=== PATIENT | female | born 1990 | race African-American/Black ===

== ENCOUNTER 2022-12-05 14:05 | Outpatient (CLI) | payer BC, SELFPAY ==
[2022-12-05 14:56] LABS: Influenza A QL RT-PCR Negative (Negative); Influenza B QL RT-PCR Negative (Negative); RSV RNA, RT-PCR Negative (Negative); SARS-CoV-2 RNA PCR Negative
== END 2022-12-05 14:06 | disposition home or self-care (01) ==
LOC: ANHLAB 14:06
PROVIDERS: PCP Family Medicine; Visit Provider Nurse Practitioner Family
DX: R68.89 Other general symptoms and signs (principal); Z20.822 Contact with and (suspected) exposure to COVID-19
CPT/HCPCS: 87637

== ENCOUNTER 2024-10-21 06:37 | Outpatient (CLI) | payer OTHER, SELFPAY ==
--- NOTE | 2024-10-22 11:46 | WPDNEUROLOGY ---
Neurology EEG Report General Information Date of Study: 10/21/24 TEST Eeg DIAGNOSIS epilepsy CONDITION OF RECORDING awake drowsy and sleep. EEG NUMBER [id number] CLINICAL HISTORY Patient reports she has started having shaking spells, shortness of breath and losing consciousness. EEG DESCRIPTION Basic resting occipital frequency consists of low to medium voltage 9 to 11 hertz per 2nd alpha admixed with low-voltage 15 to 18 hertz per 2nd beta activity. Good donovan posterior gradient noted. Photic stimulation produced normal drive. and hyperventilation produced normal and symmetrical buildup. During drowsiness low voltage beta activity seen admixed with waxing and waning alpha activity. Evolving into mixture of the beta alpha and theta activity. Single episode of sharp dysrhythmic discharge seen only for 1-1/2 seconds. Nonfocal. Nonlateralizing. IMPRESSION Abnormal record due to the presence of single epic of dysrhythmic sharp and slow wave discharge lasting for 1-1/2nd. This abnormality could be suggestive of underlying seizure disorder. Clinical correlation recommended.
== END 2024-10-21 06:38 | disposition home or self-care (01) ==
LOC: ANHNEURO 06:39
PROVIDERS: PCP Family Medicine; Visit Provider Psychiatry & Neurology Neurology
DX: G40.909 Epilepsy, unspecified, not intractable, without status epilepticus (principal); Z87.828 Personal history of other (healed) physical injury and trauma; R25.8 Other abnormal involuntary movements
CPT/HCPCS: 95816

== ENCOUNTER 2025-01-13 22:49 | Emergency (ER) | payer OTHER, SELFPAY ==
[2025-01-13 22:49] VITALS: BP 116/90; PULSE 100; RESP 14; TEMP 36.7; O2SAT 100
[2025-01-13 23:06] LABS: Basophils Percent Auto 0.8 % (0.2-1.2); Hematocrit 36.5 % (37.0-47.0); Hemoglobin 12.1 g/dL (12.0-15.0); Lymphocytes Absolute Auto 1.59 K/mm3 (0.9-3.2); Lymphocytes Percent Auto 32.1 % (18.3-44.2); Mean Corpuscular HGB Conc 33.2 g/dl (32-36); Mean Corpuscular Hemoglobin 26.4 pg (26-34); Mean Corpuscular Volume 79.5 fl (80-100); Mean Platelet Volume 12.3 fl (7.4-10.4); Monocytes Absolute Auto 0.3 K/mm3 (0.1-0.6); Monocytes Percent Auto 6.7 % (2.6-8.5); Neutrophils Percent Auto 60.4 % (45.5-73.1); Platelet Count Result 317 k/mm3 (150-375); Red Blood Count 4.59 M/mm3 (4.2-5.4); Red Cell Distribution Width 14.4 % (11.5-14.5)
[2025-01-13] MEDS: SODIUM CHLORIDE 0.9% IV 1,000 ML 999 ML IV CONT (23:11)
[2025-01-13 23:21] LABS: Alanine Aminotransferase 19 U/L (6-35); Albumin Level 3.5 g/dL (3.5-5.1); Alkaline Phosphatase 57 U/L (38-126); Anion Gap 15 mmol/L (4-12); Aspartate Amino Transferase 20 U/L (14-36); Bilirubin,Total 0.6 mg/dL (0.2-1.3); Blood Urea Nitrogen 11 mg/dL (7-17); Calcium 7.9 mg/dL (8.4-10.2); Carbon Dioxide 12 mmol/L (22-30); Chloride 110 mmol/L (98-107); Estimated CRCL calculation 92 ml/min; Estimated Glomerular Filt Rate > 60; Glucose 73 mg/dL (65-110); Potassium 2.8 mmol/L (3.4-5.0); Sodium 137 mmol/L (137-145)
--- NOTE | 2025-01-13 23:44 | ED.SEIZURE ---
HPI - Seizure General Chief Complaint: Seizure Stated Complaint: seizure Time Seen by Provider: 01/13/25 23:00 History of Present Illness HPI Narrative: 35-year-old female with psychogenic nonepileptic seizures, hypertension. Patient presents to the emergency department for evaluation of ?17 seizures today ?patient recently got told that her was cheating on her today and that was what precipitated her shaking and convulsion type episodes. She presents with her sister at bedside who states that she was having shaking convulsions throughout the day about once an hour. Denies any headache, vision changes or trauma. She is seeing a neurologist at the [facility] system and I have their previous notes that recommended psychiatric follow-up and suspicion for nonepileptic seizures and negative EEG report. Patient is on topiramate 25 mg b.i.d. for mood stabilization/seizure prophylaxis. Patient herself presents via EMS and was appearing to have convulsions however these stopped when she brought back to the room and did not have any postictal phase. She is presently awake alert oriented answering all my questions appropriately, not any acute distress. She informs me that her seizures are triggered by stress and the news that her was unfaithful is likely what happened to treat her episodes today. She seems to be very cognizant of her psychogenic seizure disorder. Denies any other recent illnesses or injuries. No chest pain, shortness a breath, abdominal pain, back pain, fever, chills. Denies any chance of . Denies any ingestion or alcohol use. Related Data Allergies Allergy/AdvReac Type Severity Reaction Status Date / Time No Known Allergies Allergy Verified 09/01/24 15:14 Review of Systems Review of Systems: As [facility] Past Medical History Medical History Seizure disorder Environmental allergies Essential (primary) hypertension Type 2 diabetes mellitus without complications Vitamin D3 deficiency Anxiety BMI 50.0-59.9, adult GERD without esophagitis Family History Family History Father Diabetes mellitus Cardiac arrest Mother Breast cancer Hypertension Sibling Breast cancer Social History Social History Smoking status: Never smoker Alcohol intake: never Substance use: never Substance use type: does not use Do You Feel Safe in your Home?: Yes Lack of Transportation: No Lack of Food: Never True Current Housing: I Have Housing Concerned About Future Housing: No Difficulty Paying Gas/Electric Bills: No Difficulty Paying for Meds: No Currently Unemployed: No Education: High School Diploma/GED Difficulty w/ Childcare or Family Care: No Living arrangements: with family Additional living arrangements comments: Occupation/Education: occupation Gender identity (if verbalized by the patient): Female Sexual Orientation (if Verbalized by the Patient): Straight or Heterosexual Spiritual care concerns: No Exam Narrative: GENERAL: [Well-appearing, well-nourished, and in no acute distress.] HEAD: [Normocephalic, atraumatic.] EYES: [PERRLA and EOMI.] ENT: Nares clear, no rhinorrhea or epistaxis. Mucous membranes moist. NECK: Supple. CHEST: [Clear to auscultation. No respiratory distress.] HEART: [Regular rate and rhythm]. No murmur heard. [Normal peripheral pulses.] ABDOMEN: [Soft, nondistended], [nontender], [No rigidity or guarding] EXTREMITIES: Normal range of motion. [No edema.] SKIN: Warm, dry, no rash. NEURO: [No focal deficits]. Alert and oriented [x3.] PSYCH: [Normal mood and affect.] Course Vital Signs Vital signs: Vital Signs Temperature 36.7 C 01/13/25 22:49 Pulse Rate 100 01/13/25 22:49 Respiratory Rate 14 01/13/25 22:49 Blood Pressure 116/90 01/13/25 22:49 Pulse Oximetry 100 01/13/25 22:49 Oxygen Delivery Room Air 01/13/25 22:49 Temperature 36.7 C 01/13/25 22:49 Pulse Rate 88 01/14/25 02:24 Respiratory Rate 14 01/14/25 02:22 Blood Pressure 101/65 01/14/25 02:22 Pulse Oximetry 100 01/14/25 02:22 Oxygen Delivery Room Air 01/14/25 01:02 MDM - Seizure MDM Narrative Medical decision making narrative: 35-year-old female with history of psychogenic nonepileptic seizures presenting to the ER for evaluation of convulsion type episodes throughout the day triggered by stressful news that her was cheating on her. Patient has had neurology outpatient evaluation at [facility] earlier this month with suspicion for psychogenic nonepileptic seizures, negative EEG study, recommendations for outpatient psychiatric follow-up but she is taking topiramate for mood stabilization/seizures. Patient was having convulsions this afternoon and even called her neurologist who stated that she should take 2 of her topiramate and have outpatient evaluation. Patient presents via EMS and appears to be convulsing although does not appear to be a classical seizure-like activity. Stops when she is transferred to the stretcher here and does not have a postictal phase and she is able to answer questions immediately and act appropriately. She has normal vital signs, no tachycardia, fever, hypoxia. She has an unremarkable neurological assessment. No postictal phase. Suspicion for true epilepsy or seizures very unlikely in this clinical scenario. We will evaluate basic laboratory studies, CBC, CMP, lactic acid and a CT head given her historical features. She is given a normal saline bolus and placed on telemetry monitoring and observe frequently. Patient seems cognizant of her psychogenic nonepileptic seizure activity and states that stressful situations and psychiatric triggers to trigger her seizures. Workup shows no leukocytosis or anemia. Normal platelet count. Electrolytes show some mild hypokalemia at 2.8, low carbon dioxide secondary to hyperventilation. No signs of significant elevated anion gap. Negative lactic acid, making seizure activity very unlikely especially when correlated to her clinical exam at this time. Normal glucose, normal LFTs, normal renal function panel. Head CT shows no acute intracranial findings. EKG shows sinus rhythm. No signs of acute ischemia. Repeat electrolyte panel after potassium replacement was part way through shows improvement in all her labs. Potassium 3.2 with still several hours of infusion remaining, normalization of her carbon dioxide and anion gap consistent with her no longer hyperventilating. She has been hemodynamically stable here on cardiac/vascular sonographer throughout the entire ED visit and maintained no further seizure-like activity during her ED stay in observation. At this time she is clinically safe for discharge home with regular by Neurology and Psychiatry follow-up for her psychogenic nonepileptic seizures. Medical Records Attestation: I reviewed the patient's medical records. Lab Data Attestation: I reviewed the patient's lab results. 01/13/25 23:01 01/14/25 04:02 Labs: Lab Results 01/13/25 01/14/25 01/14/25 Range/Units 23:01 00:31 04:02 WBC 5.0 (4.5-10.0) K/mm3 RBC 4.59 (4.2-5.4) M/mm3 Hgb 12.1 (12.0-15.0) g/dL Hct 36.5 L (37.0-47.0) % MCV 79.5 L (80-100) fl MCH 26.4 (26-34) pg MCHC 33.2 (32-36) g/dl RDW 14.4 (11.5-14.5) % Plt Count 317 (150-375) k/mm3 MPV 12.3 H (7.4-10.4) fl Immature Gran % (Auto) 0.0 (0-0.5) % Neut % (Auto) 60.4 (45.5-73.1) % Lymph % (Auto) 32.1 (18.3-44.2) % [place] % (Auto) 6.7 (2.6-8.5) % Eos % (Auto) 0.0 (0-4.4) % Baso % (Auto) 0.8 (0.2-1.2) % Lymph # (Auto) 1.59 (0.9-3.2) K/mm3 [place] # (Auto) 0.3 (0.1-0.6) K/mm3 Eos # (Auto) 0.0 (0-0.3) K/mm3 Baso # (Auto) 0.0 (0.0-0.1) K/mm3 Abs Immat Gran (auto) 0.00 (0.00-0.031) K/mm3 Absolute Neuts (auto) 3.0 (1.3-6.7) K/mm3 Absolute Nucleated RBC 0.000 (0.0-0.012) K/mm3 Nucleated RBC % 0.0 (0.0-0.2) % Sodium 137 138 (137-145) mmol/L Potassium 2.8 L* 3.2 L (3.4-5.0) mmol/L Chloride 110 H 108 H (98-107) mmol/L Carbon Dioxide 12 L 17 L (22-30) mmol/L Anion Gap 15 H 13 H (4-12) mmol/L BUN 11 11 (7-17) mg/dL Creatinine 0.86 0.99 (0.7-1.0) mg/dL Estim Creat Clear Calc 92 81 ml/min Estimated GFR > 60 > 60 (59 - ) Glucose 73 81 (65-110) mg/dL Lactic Acid 1.4 (0.7-2.0) mmol/L Calcium 7.9 L 8.5 (8.4-10.2) mg/dL Total Bilirubin 0.6 (0.2-1.3) mg/dL AST 20 (14-36) U/L ALT 19 (6-35) U/L Alkaline Phosphatase 57 (38-126) U/L Total Protein 7.0 (6.3-8.2) g/dL Albumin 3.5 (3.5-5.1) g/dL Imaging Data Attestation: I personally reviewed and interpreted this imaging study as follows: My impression: Impressions Head CT 01/13/25 23:36 IMPRESSION: No acute intracranial findings. Discharge Plan Discharge Clinical Impression: Psychogenic nonepileptic seizure, Acute hypokalemia Patient Disposition: Home, Self-Care Condition: Stable Instructions: Antibiotic Form, Hypokalemia (ED), Nonepileptic Seizures (DC) Additional Instructions: Your workup here was very reassuring, the only finding we had was a slightly low potassium which we corrected with supplementation here. This was likely secondary to hyperventilation during your convulsion episodes and likely not a true deficiency. Your CT scan shows no findings. Your repeat labs are improved and stable. Your symptoms are very consistent with psychogenic nonepileptic seizures which your neurologist notes and your doctor also concur with. No true epileptic type seizure activity based on your labs and imaging and your symptoms are secondary to a stress response causing nonepileptic seizure. Call your neurologist for close follow-up and recommendations regarding your medications. No indications for hospitalization. Return with any new concerns. Patient Language: Kinyarwanda Prescriptions: No Action hydroxyzine HCl 25 mg tablet 25 mg PO TID PRN (Reason: anxiety) Qty: 30 0RF buspirone 5 mg tablet 5 mg PO TID Qty: 90 1RF fluoxetine 40 mg capsule 40 mg PO DAILY Qty: 90 1RF losartan-hydrochlorothiazide 50-12.5 mg tablet 1 tablet PO DAILY Qty: 90 1RF Mounjaro 10 mg/0.5 mL pen injector 10 mg subcut WEEKLY Qty: 6 1RF Follow-up/Referrals: Patel De Luna MD [Primary Care Provider] - Stand Alone Forms: Work/School Release IP Time of Disposition: 05:06
[2025-01-14 00:46] LABS: Lactic Acid Reflex 1.4 mmol/L (0.7-2.0)
[2025-01-14 01:01] VITALS: BP 111/59; PULSE 83; RESP 14; O2SAT 100
[2025-01-14 01:02] VITALS: O2SAT 100
[2025-01-14] MEDS: POTASSIUM CHLORIDE 20 MEQ PACKET (FOR LIQUID) 40 MEQ PO (02:05)
[2025-01-14] MEDS: SODIUM CHLORIDE 0.9% IV 1,000 ML 999 ML IV CONT (02:07)
[2025-01-14] MEDS: POTASSIUM CHLORIDE INJ 40 MEQ in SODIUM CHLORIDE 0.9% IV 500 ML 130 MEQ IVPB (02:20)
[2025-01-14 02:22] VITALS: BP 101/65; PULSE 85; RESP 14; O2SAT 100
[2025-01-14 02:24] VITALS: PULSE 88
[2025-01-14 04:17] LABS: Anion Gap 13 mmol/L (4-12); Blood Urea Nitrogen 11 mg/dL (7-17); Calcium 8.5 mg/dL (8.4-10.2); Carbon Dioxide 17 mmol/L (22-30); Chloride 108 mmol/L (98-107); Estimated CRCL calculation 81 ml/min; Estimated Glomerular Filt Rate > 60; Glucose 81 mg/dL (65-110); Potassium 3.2 mmol/L (3.4-5.0); Sodium 138 mmol/L (137-145)
== END 2025-01-14 05:25 | disposition home or self-care (01) ==
PROVIDERS: Emergency Provider Student in an Organized Health Care Education/Training Program; PCP Family Medicine
DX: F44.5 Conversion disorder with seizures or convulsions (principal); E87.6 Hypokalemia; I10 Essential (primary) hypertension; E11.9 Type 2 diabetes mellitus without complications; E55.9 Vitamin D deficiency, unspecified; K21.9 Gastro-esophageal reflux disease without esophagitis; Z79.85 Long-term (current) use of injectable non-insulin antidiabetic drugs; Z79.899 Other long term (current) drug therapy
CPT/HCPCS: 36415; 70450; 80048; 80053; 83605; 85025; 93005; 96361; 96365; 96366; 99284; A9270; J3480; J7030; J7040

== ENCOUNTER 2025-09-17 08:03 | Emergency (ER) | payer OTHER, SELFPAY ==
--- OUTSIDE RECORDS SUMMARY | 2025-08-28 09:30 | XMS_ITS ---
Author Organization [facility] As [employer] Address [facility] [facility] [address] [place] [address] Care Team Providers Care Proposal Development Manager Name Role Phone Joann De Luna MD Primary Care Provider Unavailable Yanni Champagne Unavailable [phone] REASON FOR VISIT 1 month f/u Social History Sex Assigned At : Social History Observation Description Sex Assigned At Female Encounters Encounter Location Date Provider Diagnosis [facility] [address] [facility] [address] [facility] [address] [place] [address] 08/28/2025 Yanni Champagne Plan Of Treatment No Information Progress Notes * Gini QUIROGA LDOB:1989 (35 yo F)Acc No.[id number]:08/28/2025 Patient: Queta Roldanney Branden Provider: ERIN DE LA TORRE :1990 A ge:35 Y S ex:Female Date:08/28/2025 [address] [id number] Pcp:Joann Cuellar Subjective: * Chief Complaints: * 1 month f/u Billing Information: * Procedure Codes: * Electronic signature of ERIN Lau on 09/17/2025 at 08:06 AM COMBINATION MAN Sign off status: Pending * Provider: ERIN DE LA TORRE Date: Generated for Miryam hernandez/Gi/Tone on: 1 11/17/2024 08:06 AM COMBINATION MAN
--- NOTE | ~2025-09-17 | XR_ITS ---
EXAMINATION: XR knee LT 3V, 09/17/2025 14:05 [employer]IAL SCIENCE TEACHER HISTORY: pain in LT knee, no known injury COMPARISON: No comparisons available. Findings: No acute fracture or malalignment. No significant degenerative changes. Soft tissues unremarkable. Impression: No acute fracture or malalignment. Reviewed, dictated and finalized at location P. ARIAL SCIENCE TEACHER Impression: No acute fracture or malalignment.
--- NOTE | ~2025-09-17 | US_ITS ---
LEFT LOWER EXTREMITY VENOUS DUPLEX Clinical History: pain COMPARISON: None TECHNIQUE: Grayscale, color, duplex/spectral Doppler sonography left leg FINDINGS: Left leg common femoral, femoral, popliteal, and calf veins compressible and color Doppler patent. Normal augmentation with distal compression. No internal echoes. IMPRESSION: 1. No left leg DVT. Reviewed, dictated and finalized at location R. DESIGNER IMPRESSION: 1. No left leg DVT.
--- OUTSIDE RECORDS SUMMARY | 2025-09-17 08:06 | XMS_ITS | Clinical Summary ---
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
--- OUTSIDE RECORDS SUMMARY | 2025-09-17 08:06 | XMS_ITS | Clinical Summary ---
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 Gender Identity Not on file Sexual Orientation Not on file Plan of Treatment Health Maintenance Due Date Last Done Comments Hepatitis C Virus (HCV) Screening 1990 TdaP Immunization 1988 Hepatitis B Immunization (1 of 3 - 19+ 3-dose series) 2007 Pap Smear 2009 Human Papillomavirus (HPV) Immunization (1 - 3-dose SCDM series) 2015 Cervical Cancer Screening (CCS) 2018 HPV/Cotest 2018 Influenza Immunization (#1) 2025 SARS-COV-2 Immunization ( season) 2025 02/04/2021, 01/02/2021 Respiratory Syncytial Virus (RSV) Immunization (Adult) (1 - 1-dose 75+ series) 2063 Meningococcal Immunization (ACWY) Aged Out No longer eligible b ased on patient's age to complete this topic Pneumococcal Immunization Combined Aged Out No longer eligible b ased on patient's age to complete this topic Rotavirus Immunization Aged Out No lo nger eligible based on patient's age to complete this topic
--- OUTSIDE RECORDS SUMMARY | 2025-09-17 08:06 | XMS_ITS | Encounter Summary ---
Author Organization [facility] Address [address] [place] [address] Care Team Providers Care Color Tester Name Role Phone No, Physician Unavailable Joann De Luna MD Primary Care Provider Taisha De La Fuente PT Unavailable Unavailabl e Taisha De La Fuente PT Unavailable Unavailabl e Encounter Details Date Type Department Care Team (Late st Contact Info) Description 07/06/2025 Telephone [facility] Bed Planning [address] [place] [address] Kristen Maldonado RN Social History Tobacco Use Types Packs/Day Years Used Date Smoking Tobacco: Never Smokeless Tobacco: Never Alcohol Use Standard Drinks/Week Comments No 0 (1 standard drink = 0.6 oz pur e alcohol) AUDIT-C Answer Date Recorded Q1: How often do you have a drink containing alc ohol? Never 08/17/2020 Average Number of Drinks Not on file 020 Frequency of Binge Drinking Not on file 12/2019 Personal Safety Answer Date Recorded Have you ever been in or are you currently in a harmful physical or emotional relationship or is someone making you feel afraid or unsafe? Denies 07/22/2024 Comments No Sex and Gender Information Value Date Recorded Sex Assigned at Not on file Legal Sex Female 5:02 AM LEAD ARCHITECT Gender Identity Female 03/18/2023 3:29 PM CDT Sexual Orientation Straight 03/18/2023 3: 29 PM CDT documented as of this encounter Plan of Treatment Not on file documented as of this encounter Visit Diagnoses Not on filedocumented in this encounter Care Teams Color Tester Relationship Specialty Start Date End Date Joann De Luna MD PCP - General Family Practice 03/16/23 No, Physician 08/17/20 Taisha De La Fuente, PT Physical Therapist Physical Therapy 03/26/23 Taisha De La Fuente, PT Physical Therapist Physical Therapy 03/26/23 documented as of this encounter
--- OUTSIDE RECORDS SUMMARY | 2025-09-17 08:06 | XMS_ITS | Clinical Summary ---
Author Organization [facility] Address [address] [address] Care Team Providers Care Boat Rigger Name Role Phone Unavailable Primary Care Provider Unavailabl e Source Comments [facility],non-owned Affiliates and Associated Physician Practices is amultiple site organization consisting of ambulatory clinics and hospital sitesin [place], [place], [place] and [place]. This disclosure is being madepursuant to the Care Everywhere program and may not contain all information available regarding this patient. Last updated 18.[facility] Social History Tobacco Use Types Packs/Day Years Used Date Smoking Tobacco: Never Assessed Comments Unknown Sex and Gender Information Value Date Recorded Sex Assigned at Not on file Legal Sex Female 2:29 PM CDT Gender Identity Not on file Sexual Orientation Not on file Plan of Treatment Health Maintenance Due Date Last Done Comments HIV SCREENING 2003 HEPATITIS C SCREENING 12/27/2005 DTAP/TDAP/TD VACCINES (1 - Tdap) 2007 HEPATITIS B VACCINE (1 of 3 - 19+ 3-dose series) 2007 PAP SMEAR 2009 HPV VACCINE (1 - 3-dose SCDM series) 2015 DEPRESSION SCREENING 11/16/2024 COVID-19 VACCINE ( - 2023-2 5 season) 2025 INFLUENZA VACCINE (#1) 2025 ZOSTER VACCINE (1 of 2) 2038 HIB VACCINE Aged Out No longer eligi ble based on patient's age to complete this topic MENINGOCOCCAL (Group B) VACC INE SHARED DECISION-MAKING Aged Out No longer eligibl e based on patient's age to complete this topic MENINGOCOCCAL GROUPS A/C/Y/W VACCINE Aged Out No longer eligible b ased on patient's age to complete this topic PNEUMOCOCCAL VACCINE Aged Out No long er eligible based on patient's age to complete this topic
--- OUTSIDE RECORDS SUMMARY | 2025-09-17 08:06 | XMS_ITS | Clinical Summary ---
Author Organization [facility] Address [address] [place] [address] Care Team Providers Care Bilingual Office Assistant Name Role Phone No, Physician Unavailable Joann De Luna MD Primary Care Provider Taisha De La Fuente PT Unavailable Unavailabl e Taisha De La Fuente PT Unavailable Unavailabl e Allergies No known active allergies Medications busPIRone (BUSPAR) 5 mg tablet Take 1 tablet (5 mg total) by mouth 3 (three) times a day 06/30/20 24 Active FLUoxetine (PROzac) 20 mg capsule Take 1 capsule (20 mg total) by mouth daily 06/09/20 24 Active hydrOXYzine (ATARAX) 25 mg tablet Take 1 tablet (25 mg total) by mouth 3 (three) times a day as needed Active losartan-hydroCHLO ROthiazide (HYZAAR) 50-12.5 mg per tablet Take 1 tablet by mouth daily Active Mounjaro 7.5 mg/0.5 mL pen injector Inject 0.5 mL (7.5 mg total) under the skin once a week Active topiramate (TOPAMAX) 50 mg tablet TAKE 1/2 TABLET BY MOUTH TWICE DAILY FOR 2 WEEKS THEN TAKE 1 TABLET BY MOUTH TWICE DAILY 122 tablet 12/21/19 25 Active Additional Information Patient not taking.Reported on 08/15/2025 rizatriptan [employer] (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 Do not exceed 30 mg in 24 hours. 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 He/she should avoid any dangerous environment in which he/she may get serious injury to himself/herself or others in case of seizure. - Recommend psychiatry. Patient aware most likely stress related and non epileptic - If continued episodes despite AED, may consider referral to Dr. 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): - Start topiramate 25mg BID x 2 weeks, then 50mg BID Right leg pain 03/17/2023 Pneumonia due to COVID-19 virus 08/17/2020 Encounters Date Type Department Care Team Description 08/15/2025 4:30 PM CDT Office Visit [facility] at [address] [phone] Darlene Ryan NP Irritation of right eye (Primary Dx) 07/10/2025 8:20 AM CDT Lab [address] [place] [address] Avitaminosis D (Primary Dx); Dizziness and giddiness; Fatigue; Diabetes mellitus (HCC); Essential hypertension, malignant 07/08/2025 Telephone [facility] Bed Planning [address] [place] [address] Duc Ricketts, DEMOND 07/06/2025 Telephone [facility] Bed Planning [address] [place] [address] Kristen Maldonado, DEMOND 07/03/2025 Telephone [facility] [address] [place] [phone] Tiffanie Ureña 06/30/2025 Telephone [facility] [address] [place] [phone] Tiffanie Ureña 06/28/2025 Telephone [facility] [address] [place] [phone] Latisha Mendez 06/28/2025 Telephone [facility] [address] [place] [phone] Latisha Mendez 06/26/2025 Telephone [facility] [address] [place] [phone] Tiffanie Ureña 06/18/2025 7:30 PM CDT Office Visit [facility] at [address] [phone] Romy Rios NP Dizziness (Primary Dx); Vision changes; History of seizures; Weakness from Last 3 Months Immunizations Immunization Administration Dates Next Due Influenza, Quadrivalent, Spl it, Preservative Free, Intramuscular 08/18/2020(Deferred: Patient Refused) Medical History Medical History Date Comments Hypertension Diabetes mellitus Family History Medical History Relation Name Comments Diabetes Father Diabetes Maternal Grandfather Hypertension Maternal Grandmother Breast cancer Mother Hypertension Mother Breast cancer Sister Ovarian cancer Neg Hx Thyroid cancer Neg Hx Relation Name Status Comments Father Maternal Grandfather Maternal Grandmother Mother Sister Social History Tobacco Use Types Packs/Day Years Used Date Smoking Tobacco: Never Smokeless Tobacco: Never Tobacco Cessation:Counseling Given: Not Answered Alcohol Use Standard Drinks/Week Comments No 0 (1 standard drink = 0.6 oz pur e alcohol) AUDIT-C Answer Date Recorded Q1: How often do you have a drink containing alc ohol? Never 08/17/2020 Average Number of Drinks Not on file Frequency of Binge Drinking Not on file 12/2019 Personal Safety Answer Date Recorded Have you ever been in or are you currently in a harmful physical or emotional relationship or is someone making you feel afraid or unsafe? 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 Gender Identity Female 03/18/2023 3:29 PM CDT Sexual Orientation Straight 03/18/2023 3: 29 PM CDT Obstetrics History Para Term AB IAB SAB Ectopic Multiple Livin g Live Births 0 0 0 0 0 0 0 0 0 0 0 Last Filed Vital Signs Vital Sign Reading Time Taken Comments Blood Pressure 115/78 08/15/2025 4:30 PM CDT Pulse 102 08/15/2025 4:30 PM CDT Temperature 37.1 C (98.7 F) 08/15/2025 4:30 PM CDT Respiratory Rate 18 08/15/2025 4:30 PM CDT Oxygen Saturation 99% 08/15/2025 4:30 PM CDT Inhaled Oxygen Concentration - - Weight 78.2 kg (172 lb 6.4 oz) 08/15/2025 4:30 P M CDT Height 167.6 cm (5' 5.98) 08/15/2025 4:30 PM CD T Body Mass Index 27.84 08/15/2025 4:30 PM CDT Plan of Treatment Health Maintenance Due Date Last Done Comments Depression Screening 1988 Hepatitis C Screening 1988 Dilated Eye Exam 1988 Foot Exam 1988 DTaP/Tdap/Td Vaccine (1 - Tdap) 1999 Varicella Vaccines (1 of 2 - 13+ 2-dose series) 2001 Hepatitis B Screening 2006 Pneumococcal vaccine <65 (1 of 2 - PCV) 2007 HPV Vaccines (1 - 3-dose SCD M series) 2015 Cervical Cancer Screening 12/28/2019 12/28/2018 Regular Well Visit/Exam 18-64 12/28/2019 12/28/2018 Covid-19 Vaccine (3 - 2024-2 6 season) 2025 02/04/2021, 01/02/2021 Influenza Vaccine (#1) 2025 , 08/25/2023, 08/15/2022 Hemoglobin A1C 01/10/2026 07/10/2025, 04/0 07/2025, 06/09/2024, Additional history exists Albumin Creatinine Ratio, Urine 02/22/2026 Breast Cancer Screening-Mammogram 03/16/2026 025, 02/23/2024 Lipid Panel 07/10/2026 07/10/2025, 05/17, 12/10/2023 eGFR 07/10/2026 07/10/2025, 04/0 07/2025, 07/19/2024, Additional history exists Procedures Procedure Name Priority Date/Time Associated Diagnosis Comments EGFR Routine 07/10/2025 8:38 AM CDT Avitaminosis D Dizziness and giddiness Fatigue Diabetes mellitus (HCC) Essential hypertension, malignant DIFFERENTIAL AUTO Routine 07/10/2025 8:3 8 AM CDT Avitaminosis D Dizziness and giddiness Fatigue Diabetes mellitus (HCC) Essential hypertension, malignant CBC WITH AUTO DIFFERENTIAL Routine 07/10/2025 8:38 AM CDT Avitaminosis D Dizziness and giddiness Fatigue Diabetes mellitus (HCC) Essential hypertension, malignant COMPREHENSIVE METABOLIC PANEL Routine 07/10/2025 8:38 AM CDT Avitaminosis D Dizziness and giddiness Fatigue Diabetes mellitus (HCC) Essential hypertension, malignant HEMOGLOBIN A1C Routine 07/10/2025 8:38 AM CDT Avitaminosis D Dizziness and giddiness Fatigue Diabetes mellitus (HCC) Essential hypertension, malignant LIPID PANEL Routine 07/10/2025 8:38 AM CDT Avitaminosis D Dizziness and giddiness Fatigue Diabetes mellitus (HCC) Essential hypertension, malignant MAGNESIUM Routine 07/10/2025 8:38 AM CDT Avitaminosis D Dizziness and giddiness Fatigue Diabetes mellitus (HCC) Essential hypertension, malignant THYROID FUNCTION CASCADE Routine 07/10/2025 8:38 AM CDT Avitaminosis D Dizziness and giddiness Fatigue Diabetes mellitus (HCC) Essential hypertension, malignant VITAMIN B12 Routine 07/10/2025 8:38 AM CDT Avitaminosis D Dizziness and giddiness Fatigue Diabetes mellitus (HCC) Essential hypertension, malignant VITAMIN D 25 HYDROXY Routine 07/10/2025 8:38 AM CDT Avitaminosis D Dizziness and giddiness Fatigue Diabetes mellitus (HCC) Essential hypertension, malignant POCT GLUCOSE Routine 06/18/2025 7:48 PM CDT Dizziness DIAGNOSTIC MAMMOGRAM BILATERAL W JOSE Schedule Routine, Read Routine (OP Routine) 03/16/2025 11:51 AM CDT Abnormal mammogram ALBUMIN CREATININE RATIO, URINE Routine 02/22/2025 7:39 AM CDT PAP IG, HPV-HR Routine 12/28/2018 Well woman exam from Last 3 Months or Most Recently Relevant to Health Maintenance Results * eGFR (07/10/2025 8:38 AM CDT) eGFR 81 >=60 mL/min/1. 73 m2 Comment: Interpretive Data Reference Interval Normal >/= 90 mL/min/1.73m2 Mildly decreased* 60 - 89 mL/min/1.73m2 Mildly to moderately decreased 45 - 59 mL/min/1.73m2 Moderately to severely decreased 30 - 44 mL/min/1.73m2 Severely decreased 15 - 29 mL/min/1.73m2 Kidney Failure < 15 mL/min/1.73m2 *Relative to young adult level Estimated glomerular filtration rate is determined by the 2020 CKD-EPI equation recommended by the National Kidney Foundation (A Unifying Approach to GFR Estimation: Recommendations of the NKF-ASK Task Force on Reassessing the Inclusion of Race in Diagnosing Kidney Disease, JASN 2020). The CKD-EPI equation should not be used for patients with unstable renal function and has not been validated in children and those over 70. Current interpretive data was last reviewed 2021. Blood 07/10/2025 8:38 AM CDT 07/10/2025 11:15 AM CDT Joann De Luna MD LAB BLOOD ORDERABLES F inal Result [place] [id number] [facility] Department [place] [address] * (ABNORMAL) Differential, auto (07/10/2025 8:38 AM CDT) Neutrophil abs 2.02 1.50 - 6.50 K/cumm Imm gran abs 0.01 0.00 - 0.10 K/cumm [facility] Lymphocyte abs 1.65 0.80 - 3.30 K/cumm [facility] Monocyte abs 0.16(L) 0.20 - 0.80 K/cumm [facility] Eosinophil abs 0.04 0.00 - 0.50 K/cumm [facility] Basophil abs 0.03 0.00 - 0.10 K/cumm [facility] Neutrophil pct 51.6 % [facility] Comment: Interpretive Data Percent cell count reference ranges are not reported, since discordance with absolute values may lead to misinterpretation of CBC data. Current Interpretive Data was last revised on 2018. Imm gran pct 0.3 % [facility] Comment: Interpretive Data Percent cell count reference ranges are not reported, since discordance with absolute values may lead to misinterpretation of CBC data. Current Interpretive Data was last revised on 2018. Lymphocyte pct 42.2 % [facility] Comment: Interpretive Data Percent cell count reference ranges are not reported, since discordance with absolute values may lead to misinterpretation of CBC data. Current Interpretive Data was last revised on 2018. Monocyte pct 4.1 % [facility] Comment: Interpretive Data Percent cell count reference ranges are not reported, since discordance with absolute values may lead to misinterpretation of CBC data. Current Interpretive Data was last revised on 2018. Eosinophil pct 1.0 % [facility] Comment: Interpretive Data Percent cell count reference ranges are not reported, since discordance with absolute values may lead to misinterpretation of CBC data. Current Interpretive Data was last revised on 2018. Basophil pct 0.8 % [facility] Comment: Interpretive Data Percent cell count reference ranges are not reported, since discordance with absolute values may lead to misinterpretation of CBC data. Current Interpretive Data was last revised on 2018. Blood 07/10/2025 8:38 AM CDT 07/10/2025 11:15 AM CDT Joann De Luna MD LAB BLOOD ORDERABLES F inal Result Performing Organization Address [facility] Co de Phone Number [address] [address] * Thyroid Function Foard (07/10/2025 8:38 AM CDT) Pathologist [facility] TSH 1.59 0.30 - 4.20 mcIUnit/mL Blood 07/10/2025 8:38 AM CDT 07/10/2025 11:15 AM CDT Joann De Luna MD LAB BLOOD ORDERABLES F inal Result Performing Organization Address [facility] Co de Phone Number [address] [address] * (ABNORMAL) CBC with auto differential (07/10/2025 8:38 AM CDT) Pathologist [facility] WBC 3.91 3.80 - 9.90 K/cumm Hgb 12.7 11.9 - 15.5 g/dL [facility] Hct 40.9 35.6 - 45.5 % [facility] Plt 211 150 - 400 K/cumm [facility] MPV 12.7(H) 9.1 - 12.3 fL [facility] RBC 4.63 3.90 - 5.20 M/cumm [facility] MCV 88.3 81.3 - 96.4 fL [facility] MCH 27.4 27.1 - 33.3 pg [facility] MCHC 31.1(L) 32.3 - 35.7 g/dL [facility] RDW CV 15.4(H) 11.1 - 14.9 % [facility] RDW SD 48.4(H) 35.7 - 48.1 fL [facility] NRBC abs 0.00 0.00 - 0.01 K/cumm [facility] Blood 07/10/2025 8:38 AM CDT 07/10/2025 11:15 AM CDT Joann De Luna MD LAB BLOOD ORDERABLES F inal Result [address] [place] [address] * (ABNORMAL) Vitamin D 25 hydroxy (07/10/2025 8:38 AM CDT) Pathologist [facility] Vitamin D 25-OH 24.0(L) 30.0 - 80.0 ng/mL Blood Venous blood specimen / Unknown 07/10/2025 8:38 AM CDT 07/10/2025 11:15 AM CDT Joann De Luna MD LAB BLOOD ORDERABLES F inal Result [address] [place] [address] * Magnesium (07/10/2025 8:38 AM CDT) Pathologist [facility] Magnesium 2.3 1.4 - 2.5 mg/dL Blood Venous blood specimen / Unknown 07/10/2025 8:38 AM CDT 07/10/2025 11:15 AM CDT Joann De Luna MD LAB BLOOD ORDERABLES F inal Result Performing Organization Address [facility] Co de Phone Number [facility] [address] [address] * Hemoglobin A1c (07/10/2025 8:38 AM CDT) Hgb A1C 5.3 4.0 - 5.6 % Estimated Average Glucose 105 mg/dL [facility] Comment: The ADA recommends reporting an estimated Average Glucose (eAG) with all Hemoglobin A1c results using the equation derived from a study of 507 normal and diabetic adults. Minority populations were underrepresented and children were not included. (Diabetes Care 31:2176-0216, 2008). The eAG is not equivalent to a fasting glucose. Blood Venous blood specimen / Unknown 07/10/2025 8:38 AM CDT 07/10/2025 11:15 AM CDT Joann De Luna MD LAB BLOOD ORDERABLES F inal Result Performing Organization Address [facility] Co de Phone Number [address] [address] * Vitamin B12 (07/10/2025 8:38 AM CDT) Pathologist [facility] Vitamin B12 304 230 - 1,250 pg/mL Blood Venous blood specimen / Unknown 07/10/2025 8:38 AM CDT 07/10/2025 11:15 AM CDT Joann De Luna MD LAB BLOOD ORDERABLES F inal Result Performing Organization Address [facility] Co de Phone Number [address] [address] * (ABNORMAL) Lipid panel (07/10/2025 8:38 AM CDT) Cholesterol 196 30 - 199 mg/dL Comment: Interpretive Data Ages < or = 19 years Acceptable: <170 mg/dL Borderline high: 170-199 mg/dL High: >or= 200 mg/dL Ages > or = 20 years Desirable: <200 mg/dL Borderline high: 200-239 mg/dL High: >or= 240 mg/dL Literature References: 1. Expert Panel on Integrated Guidelines for Cardiovascular Health and Risk Reduction in Children and Adolescents. Pediatrics 2011;128:S213 2. NCEP Expert Panel. Circulation 2004;110:227 Current Interpretive Data was last revised on 2018. Triglycerides 69 <=149 mg/dL [facility] Comment: Interpretive Data Ages < or = 9 years Acceptable: <75 mg/dL Borderline high: 75-99 mg/dL High: >or= 100 mg/dL Ages 10 to 20 years Acceptable: <90 mg/dL Borderline high: 90-129 mg/dL High: >or= 130 mg/dL Ages > or = 20 years Desirable: <150 mg/dL Borderline high: 150-199 mg/dL High: 200-499 mg/dL Very high: >or= 499 mg/dL Literature References: 1. Expert Panel on Integrated Guidelines for Cardiovascular Health and Risk Reduction in Children and Adolescents. Pediatrics 2011;128:S213 2. NCEP Expert Panel. Circulation 2004;110:227 Current Interpretive Data was last revised on 2018. HDL 45 >=40 mg/dL [facility] Comment: Interpretive Data Ages < or = 19 years Acceptable: >45 mg/dL Borderline low: 40-45 mg/dL Low: <40 mg/dL Ages > or = 20 years Desirable: >or= 60 mg/dL Low: <40 mg/dL Literature References: 1. Expert Panel on Integrated Guidelines for Cardiovascular Health and Risk Reduction in Children and Adolescents. Pediatrics 2011;128:S213 2. NCEP Expert Panel. Circulation 2004;110:227 Current Interpretive Data was last revised on 2018. LDL, calculated 138(H) <=129 mg/dL [facility] Comment: Interpretive Data Ages < or = 19 years Acceptable: <110 mg/dL Borderline high: 110-129 mg/dL High: >or= 130 mg/dL Ages > or = 20 years Optimal: <100 mg/dL Near optimal: 100-129 mg/dL Borderline high: 130-159 mg/dL High: >160 mg/dL Calculated using the Cortes LDL-C estimating equation. This equation was implemented on 2024. Prior to this date LDL-C was estimated using the Friedewald equation. Literature References: 1. Expert Panel on Integrated Guidelines for Cardiovascular Health and Risk Reduction in Children and Adolescents. Pediatrics 2011;128:S213 2. NCEP Expert Panel. Circulation 2004;110:227 3. Sebastian Almanza et al. [place] Cardiol. 2019March 16;5(5):540-548. doi: 10.1001/[email or web address] Current Interpretive Data was last revised on 2024. Non-HDL Cholesterol 151 mg/dL [facility] Comment: Interpretive Data Ages < or = 19 years Acceptable: <120 mg/dL Borderline high: 120-144 mg/dL High: >145 mg/dL Ages > or = 20 years When triglycerides are >200 mg/dL, Non-HDL cholesterol is a secondary target of therapy with treatment goals that are 30 mg/dL greater than the LDL cholesterol target. Literature References: 1. Expert Panel on Integrated Guidelines for Cardiovascular Health and Risk Reduction in Children and Adolescents. Pediatrics 2011;128:S213 2. NCEP Expert Panel. Circulation 2004;110:227 Current Interpretive Data was last revised on 2018. Chol/HDL ratio 4 [facility] Blood Venous blood specimen / Unknown 07/10/2025 8:38 AM CDT 07/10/2025 11:15 AM CDT Joann De Luna MD LAB BLOOD ORDERABLES F inal Result [facility] [address] [facility] Department [place] [address] * (ABNORMAL) Comprehensive metabolic panel (07/10/2025 8:38 AM CDT) Sodium 135 135 - 145 mmol/L Potassium, pl 4.1 3.3 - 4.9 mmol/L [facility] Chloride 104 97 - 110 mmol/L [facility] CO2 19(L) 22 - 32 mmol/L [facility] Anion gap 12 2 - 15 mmol/L [facility] BUN 14 6 - 25 mg/dL [facility] Creatinine 0.93 0.60 - 1.10 mg/dL [facility] Glucose 78 70 - 199 mg/dL [facility] Comment: Interpretive Data Fasting glucose >/= 126 mg/dl is diagnostic for diabetes. Fasting is defined as no caloric intake for at least 8 hours. Fasting glucose between 100 mg/dl to 125 mg/dl is diagnostic of prediabetes. In a patient with classic symptoms of hyperglycemia or hyperglycemic crisis, a random glucose >/= 200 mg/dl is diagnostic for diabetes. In the absence of unequivocal hyperglycemia, results should be confirmed by repeat testing. The classification and Diagnosis of Diabetes Diabetes Care 2021; 46: S19-S40. Current interpretive data was last revised 2022. Calcium 8.9 8.5 - 10.3 mg/dL [facility] Bilirubin, total 0.3 0.1 - 1.2 mg/dL [facility] Protein, pl 7.6 6.5 - 8.5 g/dL [facility] Albumin 3.8 3.5 - 5.0 g/dL [facility] Alk phos 73 40 - 130 Units/L [facility] ALT 40 7 - 45 Units/L [facility] AST 32 10 - 45 Units/L [facility] Blood Venous blood specimen / Unknown 07/10/2025 8:38 AM CDT 07/10/2025 11:15 AM CDT Joann De Luna MD LAB BLOOD ORDERABLES F inal Result [facility] [address] [facility] Department [place] [address] * POCT glucose (06/18/2025 7:48 PM CDT) Glucose Blood, POC 106 Normal Fasting 70 - 100, Random <200 mg/dL Blood 06/18/2025 7:48 PM CDT Romy Rios NP POINT OF CARE TEST ORDERABLES Final Result * Diagnostic Mammogram Bilateral W Jose (03/16/2025 11:51 AM CDT) Anatomical Region Laterality Modality Breast Bilateral Mammography 03/16/2025 12:1 6 PM CDT Impressions 03/16/2025 12:16 PM CDT 1. The probably benign mass in the upper inner right breast, middle depth, has slightly decreased since 02/23/2024 and represents a benign focally ectatic blood vessel. 2. The right breast 7 mm oval circumscribed mass at 9:00, 5 cm from the nipple has slightly increased since 08/23/2024, at which time it was characterized as a benign cyst on ultrasound. 3. No new suspicious finding is identified in either breast on mammogram. Given the patient's family history of breast cancer, screening mammogram in one year is recommended. Risk assessment to determine her estimated lifetime risk of breast cancer is recommended as well. If elevated (>= 20%), annual screening breast MRI would be recommended as an adjunct to annual screening mammography. The patient was notified of these mammogram findings and recommended follow-up at the time of today's examination. OVERALL FINAL ASSESSMENT: BI-RADS Category 2: Benign. Electronically signed by: Trev Valerio M.D. Narrative 03/16/2025 12:16 PM CDT EXAMINATION: BILATERAL DIGITAL DIAGNOSTIC MAMMOGRAM INCLUDING CAD AND BILATERAL DIGITAL BREAST TOMOSYNTHESIS HISTORY: 35-year-old female presents for follow-up of a probably benign finding in the right breast and for annual left screening mammogram. COMPARISON: 08/23/2024, 02/25/2024, 02/23/2024 TECHNIQUE: Full field digital mammographic views of BOTH breasts were performed, including computer aided detection (CAD) and BILATERAL digital breast tomosynthesis (DBT). BREAST PARENCHYMAL COMPOSITION: The breasts are almost entirely fatty. MAMMOGRAM FINDINGS: The probably benign oval circumscribed mass in the upper inner right breast, middle depth, has slightly decreased since 02/23/2024, today measuring 5 mm (versus 7 mm previously). On tomosynthesis, this mass is contiguous with a blood vessel and represents benign focal vascular ectasia. Reidentified at the 9 o'clock position of the right breast, 5 cm from nipple is a 7 mm oval circumscribed mass with no associated suspicious calcifications or architectural distortion. This mass has only slightly increased since 08/23/2024 (previously 5-6 mm), at which time it was characterized as a benign cyst on ultrasound. us Courtney Ly NP IMG MAMMO PROCEDURES Final R esult * Albumin Creatinine Ratio, Urine (02/22/2025 7:39 AM CDT) Albumin Ur <12.0 mg/L Comment: Interpretive Data No reference range established. Current interpretive data was last revised 2019. Testing performed by: [address] [address] Creatinine Ur 338.8 mg/dL [facility] (SERGEY) Comment: Interpretive Data No reference range established. Current interpretive data was last revised 2019. Testing performed by: [address] [address] Albumin Creatinine Ratio, Ur <4 1 - 29 mg/g LUIS FELIPE CALHOUN (SERGEY) Comment:Testing performed by : [address] [address] Urine 02/22/2025 7:39 AM CDT 02/22/2025 3:40 PM CDT Narrative LUIS FELIPE CALHOUN (SERGEY) - 02/22/2025 5:11 PM CDT Fax to 02/22/2025 07:47:59 CDT Joann De Luna MD LAB URINE ORDERABLES F inal Result LUIS FELIPE CALHOUN (SERGEY) 1 [facility] Department of Laboratories [place], [place] [id number] * Pap IG, HPV-hr (12/28/2018) Endocervical/vagi nal 12/28/2018 us Marlena Sousa NP LAB PATHOLOGY ORDERABLES Final R esult EXTERNAL LAB from Last 3 Months or Most Recently Relevant to Health Maintenance Insurance [employer] Address: [address] [place] [id number] [place] [id number] [employer] Address: [address] [place] [id number] [place] [phone] [address] [place] [address] Advance Directives For more information, please contact: [phone] * Full Code (Latest Code Status on File) Date Activated Date Inactivated Comments 08/17/2020 1:43 PM 08/17/2020 1:45 PM * Full Code Date Activated Date Inactivated Comments 08/17/2020 1:43 PM 08/17/2020 1:43 PM Care Teams Bilingual Office Assistant Relationship Specialty Start Date End Date Joann De Luna MD PCP - General Family Practice 03/16/23 No, Physician 08/17/20 Taisha De La Fuente, PT Physical Therapist Physical Therapy 03/26/23 Taisha De La Fuente, PT Physical Therapist Physical Therapy 03/26/23
[2025-09-17 08:09] VITALS: BP 118/72; PULSE 92; RESP 18; TEMP 36.4; O2SAT 100
[2025-09-17 08:45] VITALS: BP 131/90; PULSE 88; RESP 17; O2SAT 100
[2025-09-17 08:46] VITALS: BP 131/90
--- NOTE | 2025-09-17 09:34 | ED_ITS ---
HPI - Extremity Problem General Chief complaint: Extremity Problem,Nontraumatic Stated complaint: sharp pain to left lower leg/calf Time Seen by Provider: 09/17/25 08:51 History of Present Illness HPI Narrative: patient is a 35-year-old female who presents ER with pain to left posterior thigh. She sat down with her legs crossed last night and developed pain while she was sitting there. She then had difficulty fully extending her leg. She thought it would go away overnight but did not she still remains flexed at the knee due to pain in the posterior thigh on left side lateral hamstring. No swelling to the leg. Does have referred pain down towards her gabriel. No pain at the knee joint. No improvement with [id number] medications. She is on weight loss medication. Related Data Home Medications ?Medication ?Instructions ?Recorded ?Confirmed ?Last Taken ?Type duloxetine 60 mg capsule,delayed 60 mg PO BID 07/10/25 09/13/25 Unknown History release Allergies Allergy/AdvReac Type Severity Reaction Status Date / Time No Known Allergies Allergy Verified 09/17/25 08:45 Review of Systems 2 Review of Systems: All systems reviewed & are unremarkable except as noted in HPI and below Constitutional: Constitutional: Reports no additional constitutional complaints Cardiovascular: Cardiovascular: Reports no additional cardiovascular complaints Respiratory: Respiratory: Reports no additional respiratory complaints Musculoskeletal: Musculoskeletal: Reports no additional musculoskeletal complaints [facility] Past Medical History Medical History Seizure disorder Environmental allergies Essential (primary) hypertension Type 2 diabetes mellitus without complications Vitamin D3 deficiency Anxiety BMI 50.0-59.9, adult GERD without esophagitis Surgical History Surgical History H/O wisdom tooth extraction (~2004) Family History Family History Father Diabetes mellitus Cardiac arrest Mother Breast cancer Hypertension Sibling Breast cancer Social History Social History Smoking status: Never smoker Alcohol intake: never Substance use: never Substance use type: does not use Do You Feel Safe in your Home?: Yes Lack of Transportation: No Lack of Food: Never True Current Housing: I Have Housing Concerned About Future Housing: No Difficulty Paying Gas/Electric Bills: No Difficulty Paying for Meds: No Currently Unemployed: No Education: High School Diploma/GED Difficulty w/ Childcare or Family Care: No Living arrangements: with family Additional living arrangements comments: Occupation/Education: occupation Gender identity (if verbalized by the patient): Female Sexual Orientation (if Verbalized by the Patient): Straight or Heterosexual Spiritual care concerns: No Exam 2 Narrative: GENERAL: Well-appearing, well-nourished, and in no acute distress. HEAD: Normocephalic, atraumatic. ENT: Mucous membranes moist. CHEST: Clear to auscultation. No respiratory distress. HEART: Regular rate and rhythm. No murmur heard. Normal peripheral pulses. EXTREMITIES: Left lower extremity in a flexed position at the knee with normal range of motion the hip. Mild discomfort over the lateral hamstring on left side, there is a knot within the muscle consistent with cramp. Neurovascular intact. No knee joint line tenderness. SKIN: Warm, dry, no rash. NEURO: Alert and oriented x3. PSYCH: Normal mood and affect. Course Course Emergency Course: Improving range of motion but not perfect. Will give crutches for home. Discussed stretching exercises as well as rest/ice/compression/elevation. Vital Signs Vital signs: Vital Signs Temperature 97.6 F 09/17/25 08:09 Pulse Rate 92 09/17/25 08:09 Respiratory Rate 18 09/17/25 08:09 Blood Pressure 118/72 09/17/25 08:09 Pulse Oximetry 100 09/17/25 08:09 Oxygen Delivery Room Air 09/17/25 08:09 Temperature 97.6 F 09/17/25 08:09 Pulse Rate 68 09/17/25 12:24 Respiratory Rate 15 09/17/25 12:24 Blood Pressure 136/81 09/17/25 12:24 Pulse Oximetry 100 09/17/25 12:24 Oxygen Delivery Room Air 09/17/25 08:09 MDM - Extremity (Nontraumatic) Differential Diagnosis Differential diagnosis: Likely deep vein thrombosis of lower extremity and other ( Muscle strain, muscle spasm, electrolyte abnormality) Lab Data Attestation: I reviewed the patient's lab results. 09/17/25 11:15 09/17/25 11:15 Labs: Lab Results 09/17/25 Range/Units 11:15 WBC 4.5 (4.5-10.0) K/mm3 RBC 4.76 (4.2-5.4) M/mm3 Hgb 13.0 (12.0-15.0) g/dL Hct 41.2 (37.0-47.0) % MCV 86.6 (80-100) fl MCH 27.3 (26-34) pg MCHC 31.6 L (32-36) g/dl RDW 13.6 (11.5-14.5) % Plt Count 257 (150-375) k/mm3 MPV 11.6 H (7.4-10.4) fl Immature Gran % (Auto) 0.2 (0-0.5) % Neut % (Auto) 56.9 (45.5-73.1) % Lymph % (Auto) 36.5 (18.3-44.2) % Payette % (Auto) 5.3 (2.6-8.5) % Eos % (Auto) 0.4 (0-4.4) % Baso % (Auto) 0.7 (0.2-1.2) % Lymph # (Auto) 1.65 (0.9-3.2) K/mm3 Payette # (Auto) 0.2 (0.1-0.6) K/mm3 Eos # (Auto) 0.0 (0-0.3) K/mm3 Baso # (Auto) 0.0 (0.0-0.1) K/mm3 Abs Immat Gran (auto) 0.01 (0.00-0.031) K/mm3 Absolute Neuts (auto) 2.6 (1.3-6.7) K/mm3 Absolute Nucleated RBC 0.000 (0.0-0.012) K/mm3 Nucleated RBC % 0.0 (0.0-0.2) % Sodium 135 L (137-145) mmol/L Potassium 4.3 (3.4-5.0) mmol/L Chloride 107 (98-107) mmol/L Carbon Dioxide 19 L (22-30) mmol/L Anion Gap 9 (4-12) mmol/L BUN 16 (7-17) mg/dL Creatinine 0.84 (0.7-1.0) mg/dL Estim Creat Clear Calc 81 ml/min Estimated GFR > 60 (59 - ) Glucose 79 (65-110) mg/dL Calcium 9.0 (8.4-10.2) mg/dL Magnesium 2.3 (1.6-2.3) mg/dL Total Bilirubin 0.6 (0.2-1.3) mg/dL AST 20 (14-36) U/L ALT 12 (6-35) U/L Alkaline Phosphatase 69 (38-126) U/L Total Protein 8.2 (6.3-8.2) g/dL Albumin 4.4 (3.5-5.1) g/dL Imaging Data Radiologist's impression: ITS Impressions Venous Doppler Study 09/17/25 13:23 IMPRESSION: 1. No left leg DVT. Knee X-Ray 09/17/25 14:17 Impression: No acute fracture or malalignment. Discharge Plan Discharge Clinical Impression: Cramp in muscle Patient Disposition: Home Condition: Stable Instructions: Leg Cramps (ED), P.R.I.C.E. Treatment (ED) Additional Instructions: Return to the ER if you have chest pain with shortness of breath, you leg is cold/blue, you have new injury, or you have additional concerns. Patient Language: Frisian Prescriptions: New diazepam [Valium] 2 mg tablet 2 mg PO TID PRN (Reason: muscle spasm) Qty: 6 0RF cyclobenzaprine 10 mg tablet 10 mg PO TID PRN (Reason: muscle spasm) Qty: 12 0RF naproxen 375 mg tablet 375 mg PO BID Qty: 14 0RF No Action duloxetine 60 mg capsule,delayed release(DR/EC) 60 mg PO BID loratadine [Claritin] 10 mg tablet 10 mg PO DAILY PRN (Reason: allergy symptoms) Qty: 90 0RF triamcinolone acetonide 0.5 % cream 1 applic topical BID Qty: 15 0RF levetiracetam 500 mg tablet 500 mg PO Q12H Qty: 180 0RF Mounjaro 10 mg/0.5 mL pen injector 10 mg subcut WEEKLY Qty: 2 0RF Follow-up/Referrals: Patel De Luna MD [Primary Care Provider, Family Practice] - 1 Week Stand Alone Forms: Work/School Release IP
[2025-09-17] MEDS: KETOROLAC 30 MG/ML VIAL (*BKC) IV PUSH (09:38)
[2025-09-17] MEDS: diazePAM INJ (*CRX) 10 MG/2 ML SYRINGE 5 MG IV PUSH (09:38)
[2025-09-17] MEDS: SODIUM CHLORIDE 0.9% IV 1,000 ML 999 ML IV CONT (09:39)
--- OUTSIDE RECORDS SUMMARY | 2025-09-17 09:48 | XMS_ITS | Clinical Summary ---
Author Organization [facility] Address [address] [place] [address] Care Team Providers Care Assisted Living Director Name Role Phone Unavailable Primary Care Provider Unavailabl e Source Comments [facility],non-owned Affiliates and Associated Physician Practices is amultiple site organization consisting of ambulatory clinics and hospital sitesin [place], [place], [place] and [place]. This disclosure is being madepursuant to the Care Everywhere program and may not contain all information available regarding this patient. Last updated 18.[facility] Social History Tobacco Use Types Packs/Day Years [...]
--- OUTSIDE RECORDS SUMMARY | 2025-09-17 09:48 | XMS_ITS | Encounter Summary ---
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
--- OUTSIDE RECORDS SUMMARY | 2025-09-17 09:48 | XMS_ITS | Clinical Summary ---
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
--- OUTSIDE RECORDS SUMMARY | 2025-09-17 09:48 | XMS_ITS | Clinical Summary ---
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
--- OUTSIDE RECORDS SUMMARY | 2025-09-17 09:48 | XMS_ITS | Clinical Summary ---
Author Organization [facility] Address [address] [place] [address] Care Team Providers Care Weaving Machine Operator Name Role Phone No, Physician Unavailable Joann [...] Information Patient not taking.Reported on 08/15/2025 rizatriptan DIGITAL DEVELOPER (MAXALT-DIGITAL DEVELOPER) 10 mg disintegrating tabletIndications: Migraine Take 1 [...] 12/21/2024 Assessment & Plan (12/21/2024 2:41 PM PROGRAM ARRANGER): - Patient to get copy of [place] [facility] notes including EEG - Topiramate 25mg [...] 12/21/2024 Assessment & Plan (12/21/2024 2:38 PM PROGRAM ARRANGER): - Start topiramate 25mg BID x 2 weeks, then 50mg BID Right leg pain 03/17/2023 Pneumonia due to COVID-19 virus 08/17/2020 Encounters Date Type Department Care Team Description 08/15/2025 4:30 PM CDT Office Visit [facility] at [address] [phone] Darlene Ryan NP Irritation of right eye (Primary Dx) 07/10/2025 8:20 AM CDT Lab [address] [place] [address] Avitaminosis D (Primary Dx); Dizziness and giddiness; Fatigue; Diabetes mellitus (HCC); Essential hypertension, malignant 07/08/2025 Telephone [facility] Bed Planning 1 [place] [address] Duc Ricketts, DEMOND 07/06/2025 Telephone [facility] Bed Planning 1 [place] [address] Kristen Maldonado, DEMOND 07/03/2025 Telephone [facility] [address] [place] [phone] Tiffanie Ureña 06/30/2025 Telephone [facility] [address] [place] [phone] Tiffanie Ureña 06/28/2025 Telephone [facility] [address] [place] [phone] Latisha Mendez 06/28/2025 Telephone [facility] [address] [place] [phone] Latisha Mendez 06/26/2025 Telephone [facility] [address] [place] [phone] Tiffanie Ureña 06/18/2025 7:30 PM CDT Office Visit [facility] at [address] [phone] Romy Rios NP Dizziness (Primary [...] on file 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 Lymphocyte abs 1.65 0.80 - 3.30 K/cumm [facility] Monocyte abs 0.16(L) 0.20 - 0.80 K/cumm [facility] Eosinophil abs 0.04 0.00 - 0.50 K/cumm [facility] Basophil abs 0.03 0.00 - 0.10 K/cumm [facility] Neutrophil pct 51.6 % [facility] Comment: Interpretive Data Percent cell count reference ranges are not reported, since discordance with absolute values may lead to misinterpretation of CBC data. Current Interpretive Data was last revised on 2018. Imm gran pct 0.3 % [facility] Comment: Interpretive Data Percent cell count reference ranges are not reported, since discordance with absolute values may lead to misinterpretation of CBC data. Current Interpretive Data was last revised on 2018. Lymphocyte pct 42.2 % [facility] Comment: Interpretive Data Percent cell count reference ranges are not reported, since discordance with absolute values may lead to misinterpretation of CBC data. Current Interpretive Data was last revised on 2018. Monocyte pct 4.1 % [facility] Comment: Interpretive Data Percent cell count reference ranges are not reported, since discordance with absolute values may lead to misinterpretation of CBC data. Current Interpretive Data was last revised on 2018. Eosinophil pct 1.0 % [facility] Comment: Interpretive Data Percent cell count reference ranges are not reported, since discordance with absolute values may lead to misinterpretation of CBC data. Current Interpretive Data was last revised on 2018. Basophil pct 0.8 % [facility] Comment: Interpretive Data Percent cell count reference ranges are not reported, since discordance with absolute values may lead to misinterpretation of CBC data. Current Interpretive Data was last revised on 2018. Blood 07/10/2025 8:38 AM CDT 07/10/2025 11:15 AM CDT Joann De Luna MD LAB BLOOD ORDERABLES F inal Result Performing Organization Address [facility] Co de Phone Number [address] [address] * Thyroid Function [place] (07/10/2025 8:38 AM CDT) Pathologist [facility] TSH 1.59 0.30 - 4.20 mcIUnit/mL Blood 07/10/2025 8:38 AM CDT 07/10/2025 11:15 AM CDT Joann De Luna MD LAB BLOOD ORDERABLES F inal Result Performing Organization Address [facility] Co de Phone Number [address] [address] * (ABNORMAL) CBC with auto differential (07/10/2025 8:38 AM CDT) Pathologist [facility] WBC 3.91 3.80 - 9.90 K/cumm Hgb 12.7 11.9 - 15.5 g/dL [facility] Hct 40.9 35.6 - 45.5 % [facility] Plt 211 150 - 400 K/cumm [facility] MPV 12.7(H) 9.1 - 12.[address] [facility] RBC 4.63 3.90 - 5.20 M/cumm [facility] MCV 88.3 81.3 - 96.[address] [facility] MCH 27.4 27.1 - 33.[address] [facility] MCHC 31.1(L) 32.3 - 35.7 g/dL [facility] RDW CV 15.4(H) 11.1 - 14.9 % [facility] RDW SD 48.4(H) 35.7 - 48.[address] [facility] NRBC abs 0.00 0.00 - 0.01 K/cumm [facility] Blood 07/10/2025 8:38 AM CDT 07/10/2025 11:15 AM CDT Joann De Luna MD LAB BLOOD ORDERABLES F inal Result [address] [place] [address] * (ABNORMAL) Vitamin D 25 hydroxy (07/10/2025 8:38 AM CDT) Pathologist [facility] Vitamin D 25-OH 24.0(L) 30.0 - 80.0 ng/mL Blood Venous blood specimen / Unknown 07/10/2025 8:38 AM CDT 07/10/2025 11:15 AM CDT Joann De Luna MD LAB BLOOD ORDERABLES F inal Result [address] [place] [address] * Magnesium (07/10/2025 8:38 AM CDT) Pathologist [facility] Magnesium 2.3 1.4 - 2.5 mg/dL Blood Venous blood specimen / Unknown 07/10/2025 8:38 AM CDT 07/10/2025 11:15 AM CDT Joann De Luna MD LAB BLOOD ORDERABLES F inal Result Performing Organization Address [facility] Co de Phone Number LUIS FELIPE [address] [address] * Hemoglobin A1c (07/10/2025 8:38 AM CDT) Hgb A1C 5.3 4.0 - 5.6 % Estimated Average Glucose 105 mg/dL LUIS FELIPE Comment: The ADA recommends reporting an estimated Average Glucose (eAG) with all Hemoglobin A1c results using the equation derived from a study of 507 normal and diabetic adults. Minority populations were underrepresented and children were not included. (Diabetes Care 31:4417-3978, 2008). The eAG is not equivalent to a fasting glucose. Blood Venous blood specimen / Unknown 07/10/2025 8:38 AM CDT 07/10/2025 11:15 AM CDT Joann De Luna MD LAB BLOOD ORDERABLES F inal Result Performing Organization Address [facility] Co de Phone Number [address] [address] * Vitamin B12 (07/10/2025 8:38 AM CDT) Pathologist [facility] Vitamin B12 304 230 - 1,250 pg/mL Blood Venous blood specimen / Unknown 07/10/2025 8:38 AM CDT 07/10/2025 11:15 AM CDT Joann De Luna MD LAB BLOOD ORDERABLES F inal Result Performing Organization Address [facility] Co de Phone Number [address] [address] * (ABNORMAL) Lipid panel (07/10/2025 8:38 AM [...] revised on 2024. Non-HDL Cholesterol 151 mg/dL [facility] Comment: Interpretive Data Ages < or [...] last revised on 2018. Chol/HDL ratio [address] [facility] Blood Venous blood specimen / Unknown 07/10/2025 8:38 AM CDT 07/10/2025 11:15 AM CDT Joann De Luna MD LAB BLOOD ORDERABLES F inal Result [facility] [address] [facility] Department [place] [address] * (ABNORMAL) Comprehensive metabolic panel (07/10/2025 8:38 AM CDT) Sodium 135 135 - 145 mmol/L Potassium, pl 4.1 3.3 - 4.9 mmol/L [facility] Chloride 104 97 - 110 mmol/L [facility] CO2 19(L) 22 - 32 mmol/L [facility] Anion gap 12 2 - 15 mmol/L [facility] BUN 14 6 - 25 mg/dL [facility] Creatinine 0.93 0.60 - 1.10 mg/dL [facility] Glucose 78 70 - 199 mg/dL [facility] Comment: Interpretive Data Fasting glucose >/= [...] 2022. Calcium 8.9 8.5 - 10.3 mg/dL [facility] Bilirubin, total 0.3 0.1 - 1.2 mg/dL [facility] Protein, pl 7.6 6.5 - 8.5 g/dL [facility] Albumin 3.8 3.5 - 5.0 g/dL [facility] Alk phos 73 40 - 130 Units/L [facility] ALT 40 7 - 45 Units/L [facility] AST 32 10 - 45 Units/L [facility] Blood Venous blood specimen / Unknown 07/10/2025 8:38 AM CDT 07/10/2025 11:15 AM CDT Joann De Luna MD LAB BLOOD ORDERABLES F inal Result [facility] [address] [facility] Department [place] [address] * POCT glucose (06/18/2025 7:48 PM CDT) [...] was last revised 2019. Testing performed by: [address] [address] Creatinine Ur 338.8 mg/dL [facility]IS FELIPE [facility]HOUN (SERGEY) Comment: Interpretive Data No reference range established. Current interpretive data was last revised 2019. Testing performed by: [address] [address] Albumin Creatinine Ratio, Ur <4 1 - 29 mg/g [facility] FEL[facility]N (SERGEY) Comment:Testing performed by : [address] [address] Urine 02/22/2025 7:39 AM CDT 02/22/2025 3:40 PM CDT Narrative LUIS FELIPE CALHOUN (SERGEY) - 02/22/2025 5:11 PM CDT Fax to 02/22/2025 07:47:59 CDT Joann De Luna MD LAB URINE ORDERABLES F inal Result LUI SFELIPE CALHOUN (SERGEY) 1 [facility] Department of Laboratories [place], [place] [id number] * Pap IG, HPV-hr (12/28/2018) Endocervical/vagi nal 12/28/2018 us Marlena Sousa NP LAB PATHOLOGY ORDERABLES Final R esult EXTERNAL LAB from Last 3 Months or Most Recently Relevant to Health Maintenance Insurance [employer] Address: [address] [place] [id number] [place] [phone] [employer] Address: [address] [place] [phone] [place] [phone] [address] [place] [address] Advance Directives For more information, please contact: [phone] * Full Code (Latest Code Status on File) Date Activated Date Inactivated Comments 08/17/2020 1:43 PM 08/17/2020 1:45 PM * Full Code Date Activated Date Inactivated Comments 08/17/2020 1:43 PM 08/17/2020 1:43 PM Care Teams Weaving Machine Operator Relationship Specialty Start Date End Date Joann De Luna MD PCP - General Family Practice 03/16/23 No, Physician 08/17/20 Taisha De La Fuente, PT Physical Therapist Physical Therapy 03/26/23 Taisha De La Fuente, PT Physical Therapist Physical Therapy 03/26/23
[2025-09-17 11:19] LABS: Hematocrit 41.2 % (37.0-47.0); Hemoglobin 13.0 g/dL (12.0-15.0); Immature Granulocyte Percent A 0.2 % (0-0.5); Lymphocytes Absolute Auto 1.65 K/mm3 (0.9-3.2); Mean Corpuscular HGB Conc 31.6 g/dl (32-36); Mean Corpuscular Hemoglobin 27.3 pg (26-34); Mean Corpuscular Volume 86.6 fl (80-100); Nucleated Red Blood Cells Absolute Auto 0.000 K/mm3 (0.0-0.012); Nucleated Red Blood Cells Perc 0.0 % (0.0-0.2); Platelet Count Result 257 k/mm3 (150-375); Red Blood Count 4.76 M/mm3 (4.2-5.4); White Blood Count 4.5 K/mm3 (4.5-10.0)
[2025-09-17 11:29] LABS: Alanine Aminotransferase 12 U/L (6-35); Albumin Level 4.4 g/dL (3.5-5.1); Alkaline Phosphatase 69 U/L (38-126); Anion Gap 9 mmol/L (4-12); Aspartate Amino Transferase 20 U/L (14-36); Bilirubin,Total 0.6 mg/dL (0.2-1.3); Blood Urea Nitrogen 16 mg/dL (7-17); Calcium 9.0 mg/dL (8.4-10.2); Carbon Dioxide 19 mmol/L (22-30); Chloride 107 mmol/L (98-107); Estimated CRCL calculation 81 ml/min; Estimated Glomerular Filt Rate > 60; Glucose 79 mg/dL (65-110); Magnesium 2.3 mg/dL (1.6-2.3); Potassium 4.3 mmol/L (3.4-5.0); Sodium 135 mmol/L (137-145); Total Protein 8.2 g/dL (6.3-8.2)
[2025-09-17 12:24] VITALS: BP 136/81; PULSE 68; RESP 15; O2SAT 100
== END 2025-09-17 15:15 | disposition home or self-care (01) ==
PROVIDERS: Emergency Provider Emergency Medicine; PCP Family Medicine
DX: R25.2 Cramp and spasm (principal); G40.909 Epilepsy, unspecified, not intractable, without status epilepticus; E11.9 Type 2 diabetes mellitus without complications; E55.9 Vitamin D deficiency, unspecified; K21.9 Gastro-esophageal reflux disease without esophagitis; F41.9 Anxiety disorder, unspecified; Z79.4 Long term (current) use of insulin; Z79.899 Other long term (current) drug therapy
CPT/HCPCS: 36415; 73562; 80053; 83735; 85025; 93971; 96361; 96374; 96375; 99284; J1885; J3360; J7030